=== PATIENT | female | born 1985 | race Caucasian/White ===

== ENCOUNTER 2021-07-03 14:15 | Emergency (ER) | payer BC, SELFPAY ==
[~2021-07-03] VITALS: Ht 170.2 cm; Wt 54.4 kg
--- NOTE | 2021-07-03 14:17 | NUR ---
Pt brought by ambulance, A&Ox4, pt presents to ER with tachycardia after walking, pt recently diagnosed with tachicardia , taking coreg, HR 105 at this time, skin pink and warm, cap refill <3, VSS, respirations even and unlabored.
[2021-07-03 14:21] VITALS: BP_SYST 119
--- NOTE | 2021-07-03 14:22 | NUR ---
Dr Falcon evaluating patient in the ambulance
--- NOTE | 2021-07-03 14:27 | NUR ---
EKG GIVEN TO DR GOMEZ
[2021-07-03] MEDS ORDERED: NACL 0.9% 1,000 ML IV ONE (14:45)
--- NOTE | 2021-07-03 15:13 | NUR ---
awaiting for covid test result and room availability, pt A&Ox4, respirations even and unlabored,cap refill <3
[2021-07-03] MEDS ORDERED: LORazepam 1 MG TABLET ONE (16:06)
[2021-07-03 16:14] LABS: MEAN CORPUSCULAR VOLUME 84 fL (79.0-98.0)
[2021-07-03] MEDS ORDERED: LORazepam 1 MG TABLET PO ONE (16:15)
[2021-07-03 16:19] LABS: BASOPHILS % (AUTO) 0.3 % (0.0-2.0); EOSINOPHILS % (AUTO) 0.2 % (0.0-4.0); HEMATOCRIT 44.2 % (36-48); HEMOGLOBIN 14.9 g/dL (12.0-16.0); LYMPHOCYTES # (AUTO) 1.5 K/uL (1.0-5.5); LYMPHOCYTES % (AUTO) 15.1 % (20.5-51.5); MEAN CORPUSCULAR HEMOGLOBIN 28 pg (27-31); MEAN CORPUSCULAR HGB CONC 34 % (32-36); MONOCYTES # (AUTO) 0.5 K/uL (0.0-1.0); MONOCYTES % (AUTO) 4.6 % (1.7-9.3); NEUTROPHILS # (AUTO) 8.2 K/uL (1.8-7.7); NEUTROPHILS % (AUTO) 79.8 % (40.0-70.0); PLATELET COUNT (AUTO) 247 K/uL (130-430); RED BLOOD CELL COUNT(AUTO) 5.27 MIL/uL (4.2-6.2); RED CELL DISTRIBUTION WIDTH 13.5 % (9.0-15.0); WHITE BLOOD COUNT (AUTO) 10.2 K/uL (4.8-10.8)
[2021-07-03 16:24] LABS: CREATININE 0.9 mg/dL (0.55-1.30); POTASSIUM 3.3 mmol/L (3.5-5.1)
[2021-07-03 16:33] LABS: ALBUMIN 4.3 g/dL (3.4-4.8); TOTAL BILIRUBIN 0.8 mg/dL (0.0-1.0)
[2021-07-03 17:12] VITALS: BP_SYST 119
--- NOTE | 2021-07-03 17:15 | NUR ---
Patient given written and verbal discharge instructions and verbalizes understanding. ER MD discussed with patient the results and treatment provided. Patient in stable condition. ID arm band removed. IV catheter removed intact and dressing applied, no active bleeding. No Rx given. Patient educated on pain management and to follow up with PMD. Pain Scale 2/10 . Opportunity for questions provided and answered. Medication side effect fact sheet provided.
== END 2021-07-03 17:12 | disposition home or self-care (01) ==
LOC: SED 14:15
DX: F41.9 Anxiety disorder, unspecified (principal); E86.0 Dehydration; Z88.5 Allergy status to narcotic agent; Z20.822 Contact with and (suspected) exposure to COVID-19
CPT/HCPCS: 36415; 71045; 80053; 83880; 84484; 85025; 85379; 87426; 93005; 96360; 99285; J7030

== ENCOUNTER 2021-07-05 15:28 | Emergency (ER) | payer BC, SELFPAY ==
[~2021-07-05] VITALS: Ht 162.6 cm; Wt 56.7 kg
--- NOTE | 2021-07-05 15:28 | NUR ---
Pt triaged and placed in room 2.
--- NOTE | 2021-07-05 15:28 | NUR ---
Placed in room 2 . Placed on cardiac monitor technician, blood pressure machine and pulse oximeter. To gown for exam. Side rails up. Report given to RICHI Lopez.
--- NOTE | 2021-07-05 15:30 | NUR ---
Pt BIBA re feeling "lightheaded and dizzy" and "palpitations" while resting. Pt reporting her heart rate goes up to "170's" while sleeping at home. Placed on outside sales professional; VSS. HR 93. 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 Awaiting MD evaluation.
[2021-07-05 15:33] VITALS: BP_SYST 139
--- NOTE | 2021-07-05 15:50 | NUR ---
CXR being done at bedside
[2021-07-05] MEDS ORDERED: ASPIRIN 81 MG TAB.CHEW PO ONE (16:00)
--- NOTE | 2021-07-05 16:15 | NUR ---
ASA not given though marked in eMAR. Patient refused medication due to a possible allergy. Stated she has been given ASA and Ibuprofen, and 1 of those gave her "hives." Dr Bri fonseca.
[2021-07-05 16:25] LABS: BASOPHILS % (AUTO) 0.4 % (0.0-2.0); EOSINOPHILS % (AUTO) 0.5 % (0.0-4.0); HEMOGLOBIN 13.5 g/dL (12.0-16.0); LYMPHOCYTES # (AUTO) 1.6 K/uL (1.0-5.5); LYMPHOCYTES % (AUTO) 23.9 % (20.5-51.5); MEAN CORPUSCULAR HEMOGLOBIN 29 pg (27-31); MEAN CORPUSCULAR HGB CONC 35 % (32-36); MEAN CORPUSCULAR VOLUME 83 fL (79.0-98.0); MONOCYTES # (AUTO) 0.4 K/uL (0.0-1.0); MONOCYTES % (AUTO) 5.8 % (1.7-9.3); NEUTROPHILS # (AUTO) 4.6 K/uL (1.8-7.7); NEUTROPHILS % (AUTO) 69.4 % (40.0-70.0); PLATELET COUNT (AUTO) 197 K/uL (130-430); RED CELL DISTRIBUTION WIDTH 13.1 % (9.0-15.0); WHITE BLOOD COUNT (AUTO) 6.6 K/uL (4.8-10.8)
--- NOTE | 2021-07-05 16:46 | NUR ---
Dr Gregory at bedside to update patient
[2021-07-05] MEDS ORDERED: NACL 0.9% 1,000 ML IV ONE (17:30)
[2021-07-05 17:46] LABS: ALBUMIN 4.1 g/dL (3.4-4.8); CALCIUM 8.8 mg/dL (8.4-11.0); CREATININE 0.76 mg/dL (0.55-1.30); POTASSIUM 3.7 mmol/L (3.5-5.1); TOTAL BILIRUBIN 0.6 mg/dL (0.0-1.0)
--- NOTE | 2021-07-05 19:09 | NUR ---
Report given to Nihkil STODDARD to assume care of patient
--- NOTE | 2021-07-05 20:38 | NUR ---
DR. LUA DISCUSSING WITH PATIENT RESULTS AND PLAN OF CARE
--- NOTE | 2021-07-05 21:11 | NUR ---
PATIENT ROAD TESTED AMBULATED WITH STEADY GAIN WITH NO ASSISTANCE. NOTIFIED
[2021-07-05 21:53] VITALS: BP_SYST 121
--- NOTE | 2021-07-05 21:53 | NUR ---
Patient given written and verbal discharge instructions and verbalizes understanding. ER MD discussed with patient the results and treatment provided. Patient in stable condition. ID arm band removed. IV catheter removed intact and dressing applied, no active bleeding. NO RX given. Patient educated on pain management and to follow up with PMD. Pain Scale 0/10 Opportunity for questions provided and answered.
== END 2021-07-05 21:53 | disposition home or self-care (01) ==
LOC: SED 15:28
DX: R00.0 Tachycardia, unspecified (principal); F45.8 Other somatoform disorders; F41.9 Anxiety disorder, unspecified; Z88.5 Allergy status to narcotic agent
CPT/HCPCS: 36415; 71045; 80053; 83880; 84443; 84484; 85025; 85379; 93005; 96360; 99285; J7030